=== PATIENT | female | born 1975 | race Caucasian/White ===

== ENCOUNTER 2020-10-25 10:11 | Day surgery (SDC) | payer BC, OTHER ==
[2020-10-25 11:05] VITALS: BMI 30.7
[2020-10-25] MEDS ORDERED: hydrALAZINE 20 MG/ML VIAL SLOW IVP PRN (13:40)
[2020-10-25 14:01] LABS: Amnisure Test No Membranes Rupture (No Rupture)
[2020-10-25 14:04] LABS: Bilirubin Neg (Negative); Blood, Urine 25 (Negative); Glucose, Urine (Dipstick) Normal (Negative); Ketone, Urine 15 mg/dL (Negative); Leukocyte 25 (Negative); Nitrite Negative (Negative); Protein, Urine (Dipstick) Negative (Neg-Trace); Urobilinogen Normal mg/dL (Less than 2)
[2020-10-25 14:25] LABS: Clarity Clear (Clear)
[2020-10-25 14:39] LABS: RBC/HPF 0-3 HPF (0-3)
[2020-10-25 14:40] LABS: WBC/HPF 0-3 HPF (0-3)
[2020-10-25 14:42] LABS: Bacteria/HPF 1+ HPF (None Seen); Mucous/LPF Rare LPF (<2+)
== END 2020-10-25 13:50 | disposition home or self-care (01) ==
LOC: CSHLD/OP 10:11
PROVIDERS: ATTEND Family Medicine
DX: O99.891 Other specified diseases and conditions complicating pregnancy (principal); R32 Unspecified urinary incontinence; O09.523 Supervision of elderly multigravida, third trimester; O24.410 Gestational diabetes mellitus in pregnancy, diet controlled; O98.813 Other maternal infectious and parasitic diseases complicating pregnancy, third trimester; B37.3 Candidiasis of vulva and vagina; O23.593 Infection of other part of genital tract in pregnancy, third trimester; B96.89 Other specified bacterial agents as the cause of diseases classified elsewhere; Z3A.28 28 weeks gestation of pregnancy; Z87.891 Personal history of nicotine dependence
CPT/HCPCS: 59025; 81001; 84112; 87480; 87510; 87660; 99285

== ENCOUNTER 2020-12-09 10:25 | Day surgery (SDC) | payer BC, OTHER ==
[2020-12-09] MEDS ORDERED: hydrALAZINE 20 MG/ML VIAL SLOW IVP PRN (11:00)
[2020-12-09 11:33] LABS: Amnisure Test No Membranes Rupture (No Rupture)
== END 2020-12-09 13:50 | disposition home or self-care (01) ==
LOC: CSHLD/OP 10:25
PROVIDERS: ATTEND Obstetrics & Gynecology
DX: O47.9 False labor, unspecified (principal); O09.529 Supervision of elderly multigravida, unspecified trimester; Z53.29 Procedure and treatment not carried out because of patient's decision for other reasons; Z79.4 Long term (current) use of insulin; Z91.018 Allergy to other foods
CPT/HCPCS: 84112; 87480; 87510; 87660; 99284

== ENCOUNTER 2020-12-19 07:36 | Inpatient (IN) | payer BC, OTHER ==
[2020-12-19 08:14] VITALS: BMI 32.1
[2020-12-19] MEDS ORDERED: NS / Oxytocin 40 units/1000ml 1,000 ML IV PRN (09:25)
[2020-12-19] MEDS ORDERED: Lidocaine 1% (PF) 30 ML VIAL SC PRN ×2 (09:25→19:00)
[2020-12-19] MEDS ORDERED: Ondansetron PF 4 MG/2 ML Vial IVP PRN ×2 (09:25→18:39)
[2020-12-19] MEDS ORDERED: Promethazine HCl 25 MG/ML VIAL IM PRN ×2 (09:25→18:39)
[2020-12-19] MEDS ORDERED: hydrALAZINE 20 MG/ML VIAL SLOW IVP PRN (09:25)
[2020-12-19] MEDS ORDERED: Betamet Acet/Betamet Na Ph 30 MG/5 ML VIAL IM SCH (10:00)
[2020-12-19] MEDS ORDERED: Penicillin G Potassium 5 MILL.UNITS in Sodium Chloride 0.9% 100 ML IVPB SCH (10:00)
[2020-12-19] MEDS: Lactated Ringer's 1,000 ML IV SCH ×3 (10:23→18:45)
[2020-12-19] MEDS: Misoprostol 100 MCG TAB VAG SCH ×3 (10:29→18:59)
[2020-12-19 11:00] LABS: Hemoglobin 11.4 g/dL (12.0-15.5); Mean Corpuscular HGB CONC 32.4 g/dL (32.0-36.0); Mean Platelet Volume 10.7 fl (7.4-10.4); Platelet Count 165 10x3/uL (150-450); RBC Distribution Width 14.4 % (11.5-14.5); Red Blood Cell (RBC) Count 3.45 10x6/uL (3.90-5.03); White Blood Cell (WBC) Count 8.7 10x3/uL (3.5-10.5)
[2020-12-19 11:22] LABS: ALT (SGPT) 7 U/L (8-55); AST (SGOT) 5 U/L (5-34); Albumin 2.9 g/dL (3.5-5.0); Alkaline Phosphatase 104 U/L (40-110); Anion Gap 12 mmol/L (10-20); BUN (Urea Nitrogen) 5 mg/dL (7.0-18.7); Bilirubin, Total 0.4 mg/dL (0.2-1.2); Calc. Creatinine Clearance 205 mL/min (70-130); Calcium 8.7 mg/dL (7.8-10.44); Carbon Dioxide 21 mmol/L (22-29); Chloride 109 mmol/L (98-107); Globulin 2.5 g/dL (2.4-3.5); Glucose 106 mg/dL (70-105); Potassium 3.9 mmol/L (3.5-5.1); Protein, Total 5.4 g/dL (6.0-8.3); Sodium 138 mmol/L (136-145)
[2020-12-19 11:40] LABS: Hep B Surf Ag Non-Reactive S/CO (NonReactive)
[2020-12-19 11:41] LABS: Syphilis Antibody Nonreactive (Nonreactive); Syphilis Antibody Index 0.02 S/CO (<1.00 Non-Reactive)
[2020-12-19 11:48] LABS: HBSAg Index 0.16 S/CO (0-0.99)
[2020-12-19] MEDS: Penicillin G 2.5 MILL.units 2.5 MILL.UNITS in Premix Bag 1 BAG IVPB SCH ×2 (14:53→18:42)
[2020-12-19] MEDS ORDERED: Fentanyl 4 mcg/Bup 0.1% Cadd 100 ML ONE (15:28)
[2020-12-19] MEDS ORDERED: Eucerin (Mineral Oil/Petrolatum,White) 30 gm Jar TOP PRN (18:39)
[2020-12-19] MEDS ORDERED: Lactated Ringer's 500 ML IV PRN (18:39)
[2020-12-19] MEDS ORDERED: Naloxone HCl 0.4 mg/ml Vial IVP PRN ×2 (18:39)
[2020-12-19] MEDS ORDERED: diphenhydrAMINE 50 MG/ML VIAL IVP PRN (18:39)
[2020-12-19] MEDS ORDERED: Acetaminophen 325 MG TAB PO PRN (18:39)
[2020-12-19] MEDS ORDERED: ePHEDrine 50 MG/ML VIAL SLOW IVP PRN (18:39)
[2020-12-19] MEDS ORDERED: Fentanyl 4 mcg/Bupivacaine 0.1% Cassette 100 ML EPIDURAL SCH (18:45)
[2020-12-19] MEDS ORDERED: Communication Order-Pharmacy FS SCH (18:45)
[2020-12-19] MEDS ORDERED: NS w/ Oxytocin 30 units 500 ML IV SCH ×2 (19:00)
[2020-12-19] MEDS ORDERED: NS w/ Oxytocin 30 units 500 ML IVPB SCH (19:00)
[2020-12-19] MEDS ORDERED: metFORMIN 500 MG TAB PO SCH (21:00)
[2020-12-19 21:44] LABS: SARS-CoV-2 PCR by NAA Not Detected (NotDetected)
[2020-12-20] MEDS ORDERED: Misoprostol 200 MCG TAB VAG PRN (02:17)
[2020-12-20] MEDS ORDERED: Promethazine HCl 25 MG/ML VIAL IM PRN ×2 (02:17→08:45)
[2020-12-20] MEDS ORDERED: Bisacodyl 10 MG SUPP PR PRN (02:17)
[2020-12-20] MEDS ORDERED: Milk Of Magnesia 30 ML UDCUP PO PRN (02:17)
[2020-12-20] MEDS ORDERED: diphenhydrAMINE 25 MG CAP PO PRN (02:17)
[2020-12-20] MEDS ORDERED: Preparation H Ointment 28 GM TUBE PR PRN (02:17)
[2020-12-20] MEDS ORDERED: HYDROcodone/Acetaminophen 5/325 mg Tablet PO PRN (02:17)
[2020-12-20] MEDS ORDERED: Benzocaine-Menthol 82.5 ML CAN TOP PRN (02:17)
[2020-12-20] MEDS ORDERED: Ondansetron PF 4 MG/2 ML Vial IVP PRN ×2 (02:17→08:45)
[2020-12-20] MEDS ORDERED: NS / Oxytocin 40 units/1000ml 1,000 ML IV SCH (02:17)
[2020-12-20] MEDS ORDERED: hydrALAZINE 20 MG/ML VIAL SLOW IVP PRN (02:17)
[2020-12-20] MEDS ORDERED: Lanolin Ointment 7 GM TUBE TOP PRN (02:17)
[2020-12-20] MEDS ORDERED: NS w/ Oxytocin 30 units 500 ML IV SCH (02:17)
[2020-12-20] MEDS: Misoprostol 100 MCG TAB VAG SCH (02:20)
[2020-12-20] MEDS: Penicillin G 2.5 MILL.units 2.5 MILL.UNITS in Premix Bag 1 BAG IVPB SCH ×2 (02:20→06:14)
[2020-12-20] MEDS ORDERED: Zolpidem Tartrate 5 MG TAB PO PRN (02:24)
[2020-12-20] MEDS: Ibuprofen 800 MG TAB PO SCH ×3 (06:05→21:41)
[2020-12-20] MEDS: Ferrous Sulfate 325 MG TAB PO SCH (07:59)
[2020-12-20 08:05] LABS: Hemoglobin 11.3 g/dL (12.0-15.5); Mean Corpuscular HGB CONC 33.1 g/dL (32.0-36.0); Mean Corpuscular Hemoglobin 33.7 pg (27.0-33.0); Mean Corpuscular Volume 101.8 fl (81.6-98.3); Mean Platelet Volume 10.6 fl (7.4-10.4); Platelet Count 173 10x3/uL (150-450); RBC Distribution Width 14.3 % (11.5-14.5); Red Blood Cell (RBC) Count 3.35 10x6/uL (3.90-5.03); White Blood Cell (WBC) Count 16.9 10x3/uL (3.5-10.5)
[2020-12-20] MEDS: Docusate Calcium (SURFAK) 240 MG CAP PO SCH ×2 (08:06→21:41)
[2020-12-20] MEDS: Prenatal Vitamin 1 TAB PO SCH (08:06)
[2020-12-20] MEDS ORDERED: Eucerin (Mineral Oil/Petrolatum,White) 30 gm Jar TOP PRN (08:45)
[2020-12-20] MEDS ORDERED: Naloxone HCl 0.4 mg/ml Vial IVP PRN ×2 (08:45)
[2020-12-20] MEDS ORDERED: ePHEDrine 50 MG/ML VIAL SLOW IVP PRN (08:45)
[2020-12-20] MEDS ORDERED: Acetaminophen 325 MG TAB PO PRN (08:45)
[2020-12-20] MEDS ORDERED: Lactated Ringer's 500 ML IV PRN (08:45)
[2020-12-20] MEDS ORDERED: diphenhydrAMINE 50 MG/ML VIAL IVP PRN (08:45)
[2020-12-20] MEDS ORDERED: Communication Order-Pharmacy FS SCH (08:45)
[2020-12-20] MEDS ORDERED: Varicella virus, LIVE 0.5 ML VIAL SC ONE (09:00)
[2020-12-20] MEDS ORDERED: Measles/Mumps/Rubella 10 MCG/0.5 ML VIAL SC ONE (09:00)
[2020-12-20] MEDS ORDERED: Adacel (T-DAP) 0.5 ML SYRINGE IM ONE (09:00)
[2020-12-21] MEDS: Ibuprofen 800 MG TAB PO SCH ×2 (05:33→14:15)
[2020-12-21 07:46] VITALS: BP 120/60; TEMP 98
[2020-12-21] MEDS: Ferrous Sulfate 325 MG TAB PO SCH ×2 (08:18→16:43)
[2020-12-21] MEDS: Prenatal Vitamin 1 TAB PO SCH ×2 (09:29→09:55)
[2020-12-21] MEDS: Docusate Calcium (SURFAK) 240 MG CAP PO SCH ×2 (09:30→09:55)
[2020-12-21] MEDS: HYDROcodone/Acetaminophen 5/325 mg Tablet PO PRN ×2 (11:54→17:24)
== END 2020-12-21 18:50 | disposition home or self-care (01) | DRG 805 ==
LOC: CSHLD/OP 07:36 → CSHLD 09:25 → CSHPP 12-20 02:00
PROVIDERS: ADMIT Obstetrics & Gynecology; ATTEND Obstetrics & Gynecology
PROC: 4A0HXCZ Measurement of Products of Conception, Cardiac Rate, External Approach (ICD-10-PCS; principal; 2020-12-19)
PROC: 10E0XZZ Delivery of Products of Conception, External Approach (ICD-10-PCS; 2020-12-19)
DX: O24.429 Gestational diabetes mellitus in childbirth, unspecified control (principal); O60.14X0 Preterm labor third trimester with preterm delivery third trimester, not applicable or unspecified; Z37.0 Single live birth; Z3A.36 36 weeks gestation of pregnancy; O42.013 Preterm premature rupture of membranes, onset of labor within 24 hours of rupture, third trimester
CPT/HCPCS: 36415; 36416; 51702; 80053; 85027; 86780; 86850; 86900; 86901; 87340; 87635; 99285; J0702; J2540; J2590; J3490; U0003; U0005